=== PATIENT | male | born 1950 | race Caucasian/White ===

== ENCOUNTER 2019-04-15 16:08 | Inpatient (IN) | payer MEDICARE, OTHER ==
[~2019-04-15] VITALS: Ht 182.9 cm; Wt 82.3 kg
[~2019-04-15 16:08] MED LIST: ASPIRIN81 MG PO; BYSTOLIC10 MG PO; CALCIUM 600 +1 EAC2 PO; CLONIDINE HCL0.3 MG PO; COQ10 PO; CRESTOR10 MG PO; CYMBALTA60 MG PO; DAILY VITAMIN1 EAC3 PO; GABAPENTIN300 MG PO; GLIPIZIDE ER2.5 MG PO; HYDROCHLOROTH12.5 MG PO; HYDROCODON-ACE1 EAC9 PO; LISINOPRIL20 MG PO; METANX TABLET1 EACH PO; METFORMIN HCL500 MG PO; MORPHINE SULFAT30 M1 PO; OMEGA 3-6-9 CO400 MG PO; PANTOPRAZOLE SO40 MG PO; ZETIA10 MG PO
--- OUTSIDE RECORDS SUMMARY | 2019-04-15 16:11 | XMS REPORT ---
Author [facility] Address Unknown Phone Unavailable Care Team Providers Care Finance Vice President Name Role Phone Unavailable Unavailable Payers Payer Name Policy Type Policy Number Effective Date Expiration Date Problems This patient has no known problems. Allergies, Adverse Reactions, Alerts Allergy Name Allergy Type Status Severity Reaction(s) Onset Date Inactive Date Treating Clinician Comments No Known Allergies DA Active U 2016-04-22 00:00:00 Medications This patient has no known medications. Results Test Description Test Time Test Comments Text Results Atomic Results Result Comments - XR CHEST 2 V 2019-01-04 18:07:00 FAX: Joni Roman MD [phone] [place]: O St: REG FAX: Misbah Jackson MD [phone] Name: ARNELEBONYASHLEY XAVIER [facility] : 1950 Age/S: 68/M Ashley Brownncer herber Unit #: [id number] Loc: [place] [id number] Phys: Misbah Chambers MD Acct: [id number] Dis Date: Status: REG CLI PHONE #: [phone] Exam Date: 01/04/2019 1735 FAX #: [phone] Reason: R06.02 EXAMS: CPT CODE: [id number] XR CHEST 2 V 18329 EXAM: Chest x-ray, 2 views; INFORMATION: Shortness of breath; IMPRESSION: 1. No evidence of active cardiopulmonary disease. 2. No significant change compared with a study from April 22, 2016; the heart is borderline in size; lungs are clear. 3. Extensive orthopedic hardware along the thoracic and upper lumbar spine. at 1807 Reported and signed by: Polo Simpson M.D. CC: Joni Marie; Misbah Chambers MD Technologist: JADA Mcgarry) Trnscrd Date/Time/By: 01/04/2019 (1806) : By: Reanna Orig Print D/T: S: 01/04/2019 (1809) PAGE 1 Signed Report
[2019-04-15 17:15] LABS: BASOPHILS % 0.3 % (0.0-1.0); EOSINOPHILS % 0.4 % (0.0-6.0); HEMATOCRIT 30.8 % (38.2-49.6); HEMOGLOBIN 10.4 g/dL (14.0-18.0); LYMPHOCYTES # (AUTO) 0.7 (1.0-3.2); LYMPHOCYTES % 9.8 % (18.0-39.1); MEAN CORPUSCULAR HEMOGLOBIN 28.7 pg (28-32); MEAN CORPUSCULAR HGB CONC 33.8 g/dL (31-35); MEAN CORPUSCULAR VOLUME 84.8 fL (81-99); MONOCYTES # (AUTO) 0.8 (0.2-0.8); MONOCYTES % 11.5 % (4.4-11.3); NEUTROPHILS # (AUTO) 5.6 (2.1-6.9); NEUTROPHILS % 77.6 % (38.7-80.0); PLATELET COUNT 244 x10e3/uL (140-360); RED BLOOD COUNT 3.63 x10e6/uL (4.3-5.7); RED CELL DISTRIBUTION WIDTH 15.5 % (11.7-14.4)
[2019-04-15] MEDS: PIPER-TAZ 3.375 GM 50 ML IV SCH (17:20)
[2019-04-15 17:42] LABS: INR 1.08; PROTHROMBIN TIME 14.5 seconds (11.9-14.5)
[2019-04-15 17:43] LABS: PARTIAL THROMBOPLASTIN TIME 48.3 seconds (23.8-35.5)
--- NOTE | 2019-04-15 17:44 | Diagnostic Imaging Report ---
Exam: Right hand radiographs-3 views History: Right hand cellulitis. Comparison: None. Findings: No evidence of acute fracture or malalignment. No evidence of bony destructive changes. There is diffuse mild soft tissue edema in the hand. Impression: No acute osseous abnormality. Soft tissue edema in the hand. Signed by: Dr. Maryellen Damon MD on 04/15/2019 5:41 PM
[2019-04-15] MEDS ORDERED: ONDANSETRON HCL INJ 2MG/ML 2ML 2 MG/ML VIAL IV PRN (17:45)
[2019-04-15] MEDS ORDERED: DEXTROSE 50% SYRINGE 50 ML IV PRN (17:45)
[2019-04-15 17:46] LABS: ALBUMIN 3.9 g/dL (3.5-5.0); ALBUMIN/GLOBULIN RATIO 1.2 (0.8-2.0); ANION GAP 14.2 mmol/L (8-16); CALCIUM 10.2 mg/dL (8.4-10.2); CREATININE, SERUM 1.39 mg/dL (0.72-1.25); MAGNESIUM 1.8 MG/DL (1.3-2.1); POTASSIUM 4.2 mmol/L (3.5-5.1)
--- NOTE | 2019-04-15 17:46 | Diagnostic Imaging Report ---
EXAMINATION: CHEST SINGLE (PORTABLE) INDICATION: Right hand cellulitis. COMPARISON: Chest radiograph 06/02/2010. FINDINGS: TUBES and LINES: None. LUNGS: Lungs are well inflated. There is no evidence of pneumonia or pulmonary edema. Calcified granulomas overlying the right midlung and left lower lung. PLEURA: No pleural effusion or pneumothorax. HEART AND MEDIASTINUM: The cardiomediastinal silhouette is unremarkable. BONES AND SOFT TISSUES: No acute osseous abnormality. Partially seen thoracolumbar fixation hardware. UPPER ABDOMEN: No free air under the diaphragm. IMPRESSION: No acute radiographic abnormality. Signed by: Dr. Maryellen Damon MD on 04/15/2019 5:43 PM
[2019-04-15] MEDS: VANCOMYCIN 1GM/NS 250 ML 250 ML IV SCH (17:48)
[2019-04-15] MEDS ORDERED: MOBIC15 MG PO (18:02)
[2019-04-15] MEDS ORDERED: AMMONIUM LACTATE1 ML (18:02)
[2019-04-15] MEDS ORDERED: METOPROLOL SUC100 MG PO (18:02)
--- NOTE | 2019-04-15 18:03 | NUR ---
home meds verified with pt. and entered into the computer. dr. garenr aware
[2019-04-15] MEDS: SODIUM CHLORIDE 0.9% 1000ML 1,000 ML IV SCH (18:34)
[2019-04-15 18:36] LABS: CREATINE KINASE MB 2.9 ng/mL (0-5.0)
[2019-04-15 18:38] LABS: BILIRUBIN,URINE NEGATIVE (NEGATIVE); CLARITY,URINE SL CLOUDY (CLEAR); COLOR,URINE YELLOW (YELLOW); KETONES,URINE NEGATIVE (NEGATIVE); LEUKOCYTE ESTERASE ,URINE NEGATIVE (NEGATIVE); NITRITE,URINE NEGATIVE (NEGATIVE); PROTEIN,URINE DIPSTICK NEGATIVE (NEGATIVE); URINE UROBILINOGEN 1 mg/dL (0.2 - 1)
[2019-04-15 18:47] LABS: BACTERIA,URINE FEW /HPF; EPITHELIAL CELLS,URINE RARE /LPF; RBC,URINE 0-5 /HPF (0-5); WBC,URINE (MAN) 0-5 /HPF (0-5)
[2019-04-15 19:38] VITALS: BP 171/78
[2019-04-15] MEDS ORDERED: AMMONIUM LACTATE1 ML TOP (20:20)
[2019-04-15] MEDS ORDERED: ATORVASTATIN CA20 MG PO (20:20)
[2019-04-15] MEDS ORDERED: eliquis PO (20:20)
[2019-04-15] MEDS ORDERED: MULTI-VITAMIN1 EACH PO (20:20)
[2019-04-15] MEDS ORDERED: FENOFIBRIC ACI105 MG PO (20:20)
[2019-04-15] MEDS ORDERED: AMLODIPINE BESY10 MG PO (20:20)
[2019-04-15] MEDS ORDERED: FERROUS SULFAT325 MG PO (20:20)
[2019-04-15 20:23] VITALS: BP 171/78
[2019-04-15] MEDS ORDERED: NON-FORMULARY MEDICATION (Morphine Sulfate 30 MG) PO PRN (20:30)
[2019-04-15] MEDS: INSULIN LISPRO 100 UNIT/1 ML 3ML VIAL SQ SCH (21:00)
[2019-04-15] MEDS: MORPHINE SULFATE 30 MG TAB ER PO PRN (22:03)
[2019-04-15 22:56] VITALS: BP 171/78
[2019-04-16] VITALS (9 sets, daily range): BP systolic 130–188; BP diastolic 62–91
[2019-04-16] MEDS: PIPER-TAZ 3.375 GM 50 ML IV SCH ×5 (00:09→23:26)
[2019-04-16 04:43] LABS: EOSINOPHILS % 0.5 % (0.0-6.0); HEMATOCRIT 32.1 % (38.2-49.6); HEMOGLOBIN 10.5 g/dL (14.0-18.0); LYMPHOCYTES # (AUTO) 0.6 (1.0-3.2); LYMPHOCYTES % 10.8 % (18.0-39.1); MEAN CORPUSCULAR HEMOGLOBIN 28.5 pg (28-32); MEAN CORPUSCULAR HGB CONC 32.7 g/dL (31-35); MEAN CORPUSCULAR VOLUME 87.2 fL (81-99); MONOCYTES # (AUTO) 0.5 (0.2-0.8); MONOCYTES % 9.3 % (4.4-11.3); NEUTROPHILS # (AUTO) 4.4 (2.1-6.9); PLATELET COUNT 213 x10e3/uL (140-360); RED BLOOD COUNT 3.68 x10e6/uL (4.3-5.7); RED CELL DISTRIBUTION WIDTH 15.8 % (11.7-14.4)
[2019-04-16 04:59] LABS: ALBUMIN 3.6 g/dL (3.5-5.0); ALBUMIN/GLOBULIN RATIO 1.1 (0.8-2.0); ANION GAP 13.9 mmol/L (8-16); CALCIUM 9.7 mg/dL (8.4-10.2); CREATININE, SERUM 1.28 mg/dL (0.72-1.25); POTASSIUM 3.9 mmol/L (3.5-5.1)
[2019-04-16] MEDS ORDERED: ACETAMINOPHEN 325 MG TAB PO PRN (06:00)
[2019-04-16] MEDS ORDERED: CLONIDINE HCL 0.3 MG TAB PO SCH (06:00)
[2019-04-16] MEDS ORDERED: DEXTROSE 50% SYRINGE 50 ML IV PRN (06:00)
[2019-04-16] MEDS ORDERED: HYDROCODONE/APAP 10MG-325MG TAB PO PRN (06:00)
[2019-04-16] MEDS: VANCOMYCIN 1GM/NS 250 ML 250 ML IV SCH ×2 (06:01→18:07)
[2019-04-16] MEDS: SODIUM CHLORIDE 0.9% 1000ML 1,000 ML IV SCH ×3 (06:01→21:00)
[2019-04-16] MEDS: PANTOPRAZOLE SOD 40 MG TABEC PO SCH ×2 (06:53→08:29)
[2019-04-16] MEDS: MORPHINE SULFATE 30 MG TAB ER PO PRN ×3 (06:53→23:26)
[2019-04-16] MEDS: CLONIDINE HCL 0.2 MG TAB PO SCH ×3 (06:53→21:01)
[2019-04-16] MEDS ORDERED: INSULIN LISPRO 100 UNIT/1 ML 3ML VIAL SQ SCH (07:30)
[2019-04-16] MEDS: INSULIN LISPRO 100 UNIT/1 ML 3ML VIAL SQ SCH ×4 (07:30→21:00)
--- NOTE | 2019-04-16 07:30 | NUR ---
Received patient this morning and alert and responsive, call light within reach, bed in low locked position, will monitor.
[2019-04-16] MEDS: MELOXICAM 7.5 MG TAB PO SCH (08:28)
[2019-04-16] MEDS: GABAPENTIN 400 MG CAP PO SCH ×3 (08:28→21:00)
[2019-04-16] MEDS: APIXABAN 5 MG TABLET PO SCH ×2 (08:28→16:47)
[2019-04-16] MEDS: GLIPIZIDE 2.5 MG TABCR PO SCH (08:28)
[2019-04-16] MEDS: DULOXETINE HCL 30 MG DELAYED RELEASE PO SCH (08:28)
[2019-04-16] MEDS: AMLODIPINE BESYLATE 10 MG TAB PO SCH (08:28)
[2019-04-16] MEDS: FENOFIBRATE 145 MG TAB PO SCH (08:29)
[2019-04-16] MEDS: LISINOPRIL 10 MG TAB PO SCH ×2 (08:29→16:47)
[2019-04-16] MEDS: METOPROLOL SUCCINATE 50 MG TAB XL PO SCH (08:29)
[2019-04-16] MEDS: HYDROCODONE/APAP 10MG-325MG TAB PO PRN ×2 (08:34→18:08)
[2019-04-16] MEDS ORDERED: NON-FORMULARY MEDICATION (Duloxetine Hcl (Cymbalta) 60 MG) PO SCH (09:00)
[2019-04-16] MEDS ORDERED: GABAPENTIN 300 MG CAP PO SCH (09:00)
[2019-04-16] MEDS ORDERED: NON-FORMULARY MEDICATION (Metoprolol Succinate 100 MG) PO SCH (09:00)
[2019-04-16] MEDS ORDERED: LISINOPRIL 20 MG TAB PO SCH (09:00)
[2019-04-16] MEDS ORDERED: MELOXICAM 15 MG PO SCH (09:00)
[2019-04-16] MEDS ORDERED: FENOFIBRIC ACID 135 MG PO SCH (09:00)
--- NOTE | 2019-04-16 17:59 | NUR ---
Patient stable, OOB and ambulated, tolerating IV abx well, no adverse reaction, pains well managed. Vanco trough level at 11.1 and notified ENERGY ANALYST and to continue with dose. Will monitor.
[2019-04-16] MEDS: ATORVASTATIN 20 MG TAB PO SCH (21:00)
[2019-04-17] VITALS (7 sets, daily range): BP systolic 128–187; BP diastolic 66–87
[2019-04-17] MEDS: PIPER-TAZ 3.375 GM 50 ML IV SCH ×4 (05:16→23:57)
[2019-04-17] MEDS: CLONIDINE HCL 0.2 MG TAB PO SCH ×3 (05:24→21:44)
[2019-04-17] MEDS: HYDROCODONE/APAP 10MG-325MG TAB PO PRN ×3 (05:25→20:10)
[2019-04-17] MEDS: VANCOMYCIN 1GM/NS 250 ML 250 ML IV SCH ×2 (06:00→16:40)
[2019-04-17] MEDS: INSULIN LISPRO 100 UNIT/1 ML 3ML VIAL SQ SCH ×4 (07:30→21:43)
[2019-04-17] MEDS: APIXABAN 5 MG TABLET PO SCH ×2 (08:12→15:58)
[2019-04-17] MEDS: MELOXICAM 7.5 MG TAB PO SCH (08:12)
[2019-04-17] MEDS: AMLODIPINE BESYLATE 10 MG TAB PO SCH (08:12)
[2019-04-17] MEDS: GLIPIZIDE 2.5 MG TABCR PO SCH (08:12)
[2019-04-17] MEDS: DULOXETINE HCL 30 MG DELAYED RELEASE PO SCH (08:12)
[2019-04-17] MEDS: MORPHINE SULFATE 30 MG TAB ER PO PRN ×2 (08:12→17:50)
[2019-04-17] MEDS: GABAPENTIN 400 MG CAP PO SCH ×3 (08:12→21:39)
[2019-04-17] MEDS: PANTOPRAZOLE SOD 40 MG TABEC PO SCH (08:13)
[2019-04-17] MEDS: LISINOPRIL 10 MG TAB PO SCH ×2 (08:13→15:58)
[2019-04-17] MEDS: METOPROLOL SUCCINATE 50 MG TAB XL PO SCH (08:13)
[2019-04-17] MEDS: FENOFIBRATE 145 MG TAB PO SCH (08:13)
--- NOTE | 2019-04-17 15:17 | NUR ---
CM SPOKE TO DAVID GUERRERO WITH DR. CLIFFORD GROUP REGARDING DISCHARGE PLAN. PATIENT TO RECEIVE ONE MORE DAY IV ABX. PATIENT ANTICIPATED DISCHARGE TOMORROW 04/17.
[2019-04-17] MEDS ORDERED: ONDANSETRON HCL 4 MG ORAL DISINTEGRATING TAB PO PRN (15:30)
--- NOTE | 2019-04-17 18:36 | NUR ---
Resting in bed, side rails upx2, call light within reach. AAOX3 to time, person, place. Respirations even and unlabored. Report to be given to oncoming nurse of patients status.
--- NOTE | 2019-04-17 19:55 | NUR ---
Patient finished dialysis and his weight is 143.5 lb. Addendum: 04/18/19 at 0048 by Yaquelin Nur RN This was written on the wrong patient. PLEASE IGNORE ABOVE NOTE!
[2019-04-17] MEDS: ATORVASTATIN 20 MG TAB PO SCH (21:39)
[2019-04-18] VITALS (8 sets, daily range): BP systolic 136–194; BP diastolic 69–88
[2019-04-18] MEDS: HYDRALAZINE HCL 20 MG/ML VIAL IV PRN (00:32)
[2019-04-18 02:34] LABS: BASOPHILS % 0.2 % (0.0-1.0); EOSINOPHILS # (AUTO) 0.1 (0.0-0.4); HEMOGLOBIN 10.3 g/dL (14.0-18.0); LYMPHOCYTES # (AUTO) 0.7 (1.0-3.2); MEAN CORPUSCULAR HEMOGLOBIN 28.5 pg (28-32); MEAN CORPUSCULAR HGB CONC 33.2 g/dL (31-35); MEAN CORPUSCULAR VOLUME 85.6 fL (81-99); MONOCYTES # (AUTO) 0.4 (0.2-0.8); MONOCYTES % 7.8 % (4.4-11.3); NEUTROPHILS # (AUTO) 3.8 (2.1-6.9); NEUTROPHILS % 76.8 % (38.7-80.0); PLATELET COUNT 266 x10e3/uL (140-360); RED BLOOD COUNT 3.62 x10e6/uL (4.3-5.7); RED CELL DISTRIBUTION WIDTH 15.6 % (11.7-14.4)
[2019-04-18 02:51] LABS: ANION GAP 15.2 mmol/L (8-16); CREATININE, SERUM 1.29 mg/dL (0.72-1.25); POTASSIUM 4.2 mmol/L (3.5-5.1)
[2019-04-18] MEDS: HYDROCODONE/APAP 10MG-325MG TAB PO PRN ×2 (05:09→17:14)
[2019-04-18] MEDS: VANCOMYCIN 1GM/NS 250 ML 250 ML IV SCH ×2 (05:11→18:20)
[2019-04-18] MEDS: MORPHINE SULFATE 30 MG TAB ER PO PRN ×4 (05:55→23:14)
[2019-04-18] MEDS: PIPER-TAZ 3.375 GM 50 ML IV SCH ×2 (06:43→12:01)
[2019-04-18] MEDS: CLONIDINE HCL 0.2 MG TAB PO SCH ×3 (06:44→22:01)
--- NOTE | 2019-04-18 07:15 | NUR ---
Gave report to oncoming nurse. Call light within reach. Patient in bed.
[2019-04-18] MEDS: INSULIN LISPRO 100 UNIT/1 ML 3ML VIAL SQ SCH ×4 (07:30→21:58)
[2019-04-18] MEDS: GLIPIZIDE 2.5 MG TABCR PO SCH (09:06)
[2019-04-18] MEDS: DULOXETINE HCL 30 MG DELAYED RELEASE PO SCH (09:06)
[2019-04-18] MEDS: MELOXICAM 7.5 MG TAB PO SCH (09:06)
[2019-04-18] MEDS: GABAPENTIN 400 MG CAP PO SCH ×3 (09:06→21:56)
[2019-04-18] MEDS: APIXABAN 5 MG TABLET PO SCH ×2 (09:06→16:43)
[2019-04-18] MEDS: METOPROLOL SUCCINATE 50 MG TAB XL PO SCH (09:07)
[2019-04-18] MEDS: FENOFIBRATE 145 MG TAB PO SCH (09:07)
[2019-04-18] MEDS: LISINOPRIL 10 MG TAB PO SCH ×2 (09:07→16:43)
[2019-04-18] MEDS: NIFEDIPINE CR 30 MG TAB PO SCH (09:07)
[2019-04-18] MEDS: PANTOPRAZOLE SOD 40 MG TABEC PO SCH (09:07)
--- NOTE | 2019-04-18 13:51 | NUR ---
ASSESSMENT: Spiritual concern Pt worried about source of illness. Pt states "I just scraped my hand." Pt identifies as [employer]. Pt states he previously had extensive back surgery. Intervention: Provided hospitality and directions to chapel. Provided information about availability of Soil Surveyor services. Outcome: Pt expressed appreciation for visit. No need to follow at this time. ATIF NGUYEN Soil Surveyor Spiritual Care Department O: [phone] Pager: [phone] ([phone] number calling from)
--- NOTE | 2019-04-18 16:44 | Consultation ---
DATE OF CONSULTATION: 04/18/2019 REASON FOR CONSULTATION: Cellulitis of the hand, not getting any better. HISTORY OF PRESENT ILLNESS: This is a very pleasant 68-year-old white male, history of diabetes mellitus, history of hypertension, hyperlipidemia. The patient a few days ago working in his kitchen, apparently he scratched his hand on the cabinet. There was no problem at that time, but few days later started to have some pain, redness, and swelling. The patient came to emergency room. He was admitted here to [facility] on 04/17/2019. He was started on IV vancomycin and Zosyn, appropriate doses, but the hand initially started to get better, but then started to get worse again with redness starting to go up his arm, so Infectious Disease was consulted. Ultrasound apparently was done and was negative. The patient is currently lying in bed comfortably. Denies any water exposure. Denies any pet. Since admission, his white count has been within normal limits. His blood cultures have been negative for 48 hours. PAST MEDICAL HISTORY: Hypertension, hyperlipidemia, and diabetes. PAST SURGICAL HISTORY: Denies. ALLERGIES: NKA. SOCIAL HISTORY: There is no smoking, drug abuse, or alcohol abuse. FAMILY HISTORY: Diabetes mellitus. REVIEW OF SYSTEMS: HEENT: There is no headache, visual changes, hearing changes. GI: There is no nausea, no vomiting, no diarrhea. CARDIAC: There is no arrhythmia. NEURO: No seizure activity. SKIN: There are no other rashes. All other systems within normal limits. LABORATORY DATA: Reviewed. His creatinine 1.28, BUN 20, and chloride 104. White count 5.58, hemoglobin 10.5, platelets 213. PHYSICAL EXAMINATION: GENERAL: He is currently alert, oriented, does not seem to be in acute distress. VITAL SIGNS: Stable, currently afebrile. HEENT: He does not appear icteric. Normocephalic. NECK: Supple. No JVD. No lymphadenopathy. No thyromegaly. CHEST: Clear bilateral. HEART: S1, S2. No S3, S4, or murmur. ABDOMEN: Soft. Bowel sounds present. No tenderness. No hepatosplenomegaly. EXTREMITIES: There is no edema. The right hand, there is erythema, there is edema, there is induration. I am concerned about the base of the 3rd finger. There is swelling in the joint. The x-ray of the hand was negative. There was a Doppler ordered. IMPRESSION: Cellulitis of the hand. I am concerned about infected joint, I am concerned about abscess. I would recommend to obtain MRI with and without contrast. Continue vancomycin. We will discontinue Zosyn. We will put him on clindamycin and cefepime to cover strep in the meantime. We will also consult Hand Surgery, Dr. Euceda. Discussed with the patient, discussed with nursing team, discussed with the attending and discussed with Dr. Euceda. Thank you so much for asking me to see this patient. MD GERTRUDE Reese/MODAra /[id number]
[2019-04-18] MEDS: CLINDAMYCIN PHOS 900MG/ 50ML 50 ML IV SCH (17:13)
[2019-04-18] MEDS ORDERED: SODIUM CHLORIDE 0.9% 250ML 250 ML ONE (18:03)
--- NOTE | 2019-04-18 18:20 | NUR ---
vanc trough 14.4. Vancomycin to be held only if greater than 20. Vancomycin given as ordered
--- NOTE | 2019-04-18 18:48 | NUR ---
Received report from previous nurse. call light within reach. patient in bed.
--- NOTE | 2019-04-18 19:20 | NUR ---
Report given to oncoming nurse of patient's status. Resting in bed. No s/s of acute distress noted.
[2019-04-18] MEDS: ATORVASTATIN 20 MG TAB PO SCH (21:56)
[2019-04-18] MEDS: CEFEPIME 1GM/NS 0.9% 50 ML 50 ML IV SCH (22:01)
--- NOTE | 2019-04-18 22:23 | Diagnostic Imaging Report ---
EXAMINATION: CHEST XRAY LINE PLACEMENT COMPARISON: Chest x-ray 04/15/2019 INDICATION: PICC line placement ^PICC line placement ^[id number] ^2117 DISCUSSION: Frontal view of the chest obtained at 2117 hours. HEART AND MEDIASTINUM: The cardiomediastinal silhouette is unremarkable. LINES: Left PICC line terminates in the distal brachiocephalic vein. No pneumothorax LUNGS: The lungs are well inflated and clear. Calcified brownlee limits in the right midlung field and left lung base. PLEURA: No pleural effusion or pneumothorax. BONES AND SOFT TISSUES: Stable fusion hardware of the thoracic spine. The soft tissues are normal. IMPRESSION: Left PICC line terminates in the brachiocephalic vein without pneumothorax. No new cardiopulmonary process. Signed by: Dr. Shiraz Faustin MD on 04/18/2019 10:20 PM
[2019-04-19] VITALS (9 sets, daily range): BP systolic 152–181; BP diastolic 71–88
--- NOTE | 2019-04-19 00:33 | Diagnostic Imaging Report ---
EXAMINATION: CHEST XRAY LINE PLACEMENT COMPARISON: Chest x-ray 04/18/2019 INDICATION: ^PICC line placement DISCUSSION: Frontal view of the chest obtained at 0009 hours. HEART AND MEDIASTINUM: The cardiomediastinal silhouette is stable. LINES: Left PICC line has been advanced into the SVC. No pneumothorax. LUNGS: Stable calcified granulomata. No new findings. PLEURA: No pleural effusion or pneumothorax. BONES AND SOFT TISSUES: Stable fusion hardware in the thoracic spine. The soft tissues are normal. IMPRESSION: Left PICC line terminates in the SVC without pneumothorax. No acute cardiopulmonary process. Signed by: Dr. Shiraz Faustin MD on 04/19/2019 12:29 AM
[2019-04-19] MEDS: CLINDAMYCIN PHOS 900MG/ 50ML 50 ML IV SCH ×3 (00:59→18:17)
[2019-04-19 03:37] LABS: BASOPHILS % 0.6 % (0.0-1.0); EOSINOPHILS # (AUTO) 0.1 (0.0-0.4); EOSINOPHILS % 1.4 % (0.0-6.0); HEMATOCRIT 28.1 % (38.2-49.6); HEMOGLOBIN 9.3 g/dL (14.0-18.0); LYMPHOCYTES # (AUTO) 0.7 (1.0-3.2); LYMPHOCYTES % 21.1 % (18.0-39.1); MEAN CORPUSCULAR HEMOGLOBIN 28.6 pg (28-32); MEAN CORPUSCULAR HGB CONC 33.1 g/dL (31-35); MEAN CORPUSCULAR VOLUME 86.5 fL (81-99); MONOCYTES # (AUTO) 0.3 (0.2-0.8); MONOCYTES % 9.4 % (4.4-11.3); NEUTROPHILS # (AUTO) 2.3 (2.1-6.9); NEUTROPHILS % 65.8 % (38.7-80.0); PLATELET COUNT 271 x10e3/uL (140-360); RED BLOOD COUNT 3.25 x10e6/uL (4.3-5.7); RED CELL DISTRIBUTION WIDTH 15.2 % (11.7-14.4)
[2019-04-19 03:56] LABS: ANION GAP 13.2 mmol/L (8-16); BLOOD UREA NITROGEN 19 mg/dL (7-26); BUN/CREATININE RATIO 17 (6-25); CALCIUM 9.1 mg/dL (8.4-10.2); CARBON DIOXIDE 22 mmol/L (22-29); CHLORIDE 106 mmol/L (98-107); CREATININE, SERUM 1.13 mg/dL (0.72-1.25); EST GLOMERULAR FILTRATION RATE > 60 ML/MIN (60-); GLUCOSE 103 mg/dL (74-118); POTASSIUM 4.2 mmol/L (3.5-5.1); SODIUM 137 mmol/L (136-145)
[2019-04-19] MEDS: CLONIDINE HCL 0.2 MG TAB PO SCH ×3 (05:58→20:53)
[2019-04-19] MEDS: CEFEPIME 1GM/NS 0.9% 50 ML 50 ML IV SCH ×3 (05:58→20:52)
--- NOTE | 2019-04-19 06:29 | NUR ---
At 5 am patient decided he wanted to have a shower, so at 0530 he went into the shower. Waiting for the patient to finish his shower to start his IV antibiotics and give his 0600 medication.
[2019-04-19] MEDS: HYDROCODONE/APAP 10MG-325MG TAB PO PRN ×2 (06:45→14:47)
--- NOTE | 2019-04-19 07:00 | NUR ---
BEDSIDE SHIFT REPORT RECEIVED FROM THE MACHINE PRECISION ENGRAVER RN. PT DENIES NEEDS AT THIS TIME.
[2019-04-19] MEDS: VANCOMYCIN 1GM/NS 250 ML 250 ML IV SCH ×2 (07:12→19:04)
--- NOTE | 2019-04-19 07:20 | NUR ---
Gave report to oncoming nurse. Patient in bed. Call light within reach.
[2019-04-19] MEDS: INSULIN LISPRO 100 UNIT/1 ML 3ML VIAL SQ SCH ×4 (07:30→20:54)
[2019-04-19] MEDS: LISINOPRIL 10 MG TAB PO SCH ×2 (07:54→18:17)
[2019-04-19] MEDS: GABAPENTIN 400 MG CAP PO SCH ×3 (07:55→20:52)
[2019-04-19] MEDS: NIFEDIPINE CR 30 MG TAB PO SCH (07:56)
[2019-04-19] MEDS: METOPROLOL SUCCINATE 50 MG TAB XL PO SCH (07:56)
[2019-04-19] MEDS: PANTOPRAZOLE SOD 40 MG TABEC PO SCH (07:56)
[2019-04-19] MEDS: FENOFIBRATE 145 MG TAB PO SCH (07:57)
[2019-04-19] MEDS: GLIPIZIDE 2.5 MG TABCR PO SCH (07:58)
[2019-04-19] MEDS: APIXABAN 5 MG TABLET PO SCH ×2 (07:58→18:17)
[2019-04-19] MEDS: MELOXICAM 7.5 MG TAB PO SCH (07:59)
[2019-04-19] MEDS: DULOXETINE HCL 30 MG DELAYED RELEASE PO SCH (07:59)
[2019-04-19] MEDS: MORPHINE SULFATE 30 MG TAB ER PO PRN ×2 (10:46→20:56)
--- NOTE | 2019-04-19 12:00 | NUR ---
PAGED DR. NEELY OFFICE REGARDING PT DISCHARGE PROCESS.
--- NOTE | 2019-04-19 14:09 | Consultation ---
DATE OF CONSULTATION: 04/19/2019 REASON FOR CONSULT: Cellulitis, right hand. HISTORY OF PRESENT ILLNESS: The patient is a 68-year-old [id number] male, who states that approximately nine days ago while reaching for paper towel on the undersurface of his kitchen cabinet, he struck the dorsum of his right hand. The patient states that approximately several days ago, the hand began to swell and became painful. He was then seen in the emergency room on 04/15/2019 and admitted for intravenous antibiotics. The consultation is now requested of Hand Surgery for evaluation and optimal treatment. PAST MEDICAL HISTORY: Significant for hypertension, coronary artery disease, chronic back pain and peripheral neuropathy, and a history of AR. PAST SURGICAL HISTORY: Includes a thoracic back surgery and a cholecystectomy. PHYSICAL EXAMINATION: His vital signs show blood pressure of 166/71. The patient is afebrile. Pertinent physical exam shows the right hand has centralized aspect of swelling directly over the right long finger MP joint. The swelling and the erythema are diffuse and extend out to the remainder of the MPJs and the dorsum of the hand. There are no open wounds. There does not appear to be any drainage of purulent exudate. The range of motion of the hand is somewhat decreased secondary to the swelling and the pain. The neurovascular exam is grossly normal. There is no lymphangitic streaking of the arm. IMAGING DATA: Radiographs obtained in the emergency room show no acute bony abnormality and no foreign body, which is radiopaque. IMPRESSION: Cellulitis, right hand. PLAN: The patient is getting an MRI today. Of note is that the patient is normally maintained on anticoagulation, which was recently stopped in order to undergo injections of his bilateral hips for chronic pain. After the injections, the patient was restarted on the anticoagulation and he is noted to have swelling of the hand coincident with it. I am concerned that this could either be a hematoma or purulent extensor tenosynovitis. I will wait for the MRI result and then perform an aspiration of the right long finger MPJ at the bedside. Thank you for allowing me to participate in the care of your patient. MD MOISÉS Valenzuela/MODL /[id number]
[2019-04-19] MEDS ORDERED: GADOBENATE DIMEGLUMINE 1 ML IV ONE (15:54)
--- NOTE | 2019-04-19 16:15 | NUR ---
PT OFF UNIT FOR PROCEDURE IN SAFE CONDITION.
--- NOTE | 2019-04-19 17:32 | NUR ---
PT IS BACK TO UNIT AFTER PROCEDURE. PT FAMILY AT BEDSIDE. PT DENIES NEEDS AT THIS TIME.
--- NOTE | 2019-04-19 17:48 | NUR ---
Spoke with Dr. Diaz who states he has approval for IV abx thru his office when pt discharges.
--- NOTE | 2019-04-19 18:37 | NUR ---
PAGED DR. NEELY OFFICE TO REPORT THE CRITICAL VANC TROUGH LEVEL.
--- NOTE | 2019-04-19 19:00 | NUR ---
BEDSIDE SHIFT REPORT GIVEN TO THE HEARING AID ASSISTANT RN. PT DENIED FURTHER NEEDS.
--- NOTE | 2019-04-19 19:01 | NUR ---
OKAY TO ADMINISTER VANCOMYCIN PER DR. NEELY
[2019-04-19] MEDS: ATORVASTATIN 20 MG TAB PO SCH (20:52)
[2019-04-20] VITALS (8 sets, daily range): BP systolic 132–196; BP diastolic 74–91
[2019-04-20] MEDS: CLINDAMYCIN PHOS 900MG/ 50ML 50 ML IV SCH ×3 (00:58→17:43)
[2019-04-20 03:45] LABS: BASOPHILS % 0.6 % (0.0-1.0); EOSINOPHILS # (AUTO) 0.1 (0.0-0.4); EOSINOPHILS % 2.8 % (0.0-6.0); HEMATOCRIT 29.4 % (38.2-49.6); HEMOGLOBIN 9.5 g/dL (14.0-18.0); LYMPHOCYTES # (AUTO) 0.7 (1.0-3.2); LYMPHOCYTES % 22.3 % (18.0-39.1); MEAN CORPUSCULAR HEMOGLOBIN 28.4 pg (28-32); MEAN CORPUSCULAR HGB CONC 32.3 g/dL (31-35); MEAN CORPUSCULAR VOLUME 87.8 fL (81-99); MONOCYTES # (AUTO) 0.3 (0.2-0.8); MONOCYTES % 9.1 % (4.4-11.3); NEUTROPHILS % 63.9 % (38.7-80.0); PLATELET COUNT 263 x10e3/uL (140-360); RED BLOOD COUNT 3.35 x10e6/uL (4.3-5.7); RED CELL DISTRIBUTION WIDTH 15.3 % (11.7-14.4)
[2019-04-20] MEDS: HYDROCODONE/APAP 10MG-325MG TAB PO PRN ×2 (04:00→12:53)
--- NOTE | 2019-04-20 04:04 | NUR ---
PICC Line dressing changed. Patient tolerated well.
[2019-04-20 04:08] LABS: ANION GAP 13.3 mmol/L (8-16); BLOOD UREA NITROGEN 23 mg/dL (7-26); BUN/CREATININE RATIO 21 (6-25); CALCIUM 9.4 mg/dL (8.4-10.2); CARBON DIOXIDE 26 mmol/L (22-29); CHLORIDE 104 mmol/L (98-107); CREATININE, SERUM 1.11 mg/dL (0.72-1.25); EST GLOMERULAR FILTRATION RATE > 60 ML/MIN (60-); GLUCOSE 122 mg/dL (74-118); POTASSIUM 4.3 mmol/L (3.5-5.1); SODIUM 139 mmol/L (136-145)
[2019-04-20] MEDS: CEFEPIME 1GM/NS 0.9% 50 ML 50 ML IV SCH ×3 (05:39→22:07)
[2019-04-20] MEDS: CLONIDINE HCL 0.2 MG TAB PO SCH ×3 (05:40→22:07)
[2019-04-20] MEDS: MORPHINE SULFATE 30 MG TAB ER PO PRN ×2 (06:26→14:58)
[2019-04-20] MEDS: VANCOMYCIN 1GM/NS 250 ML 250 ML IV SCH ×2 (06:26→18:03)
--- NOTE | 2019-04-20 07:00 | NUR ---
BEDSIDE REPORT FROM NIGHT RN. PT DENIES NEEDS AT THIS TIME.
[2019-04-20] MEDS: INSULIN LISPRO 100 UNIT/1 ML 3ML VIAL SQ SCH ×4 (07:30→20:58)
[2019-04-20] MEDS: APIXABAN 5 MG TABLET PO SCH ×2 (08:35→17:43)
[2019-04-20] MEDS: DULOXETINE HCL 30 MG DELAYED RELEASE PO SCH (08:35)
[2019-04-20] MEDS: MELOXICAM 7.5 MG TAB PO SCH (08:35)
[2019-04-20] MEDS: GLIPIZIDE 2.5 MG TABCR PO SCH (08:35)
[2019-04-20] MEDS: PANTOPRAZOLE SOD 40 MG TABEC PO SCH (08:36)
[2019-04-20] MEDS: GABAPENTIN 400 MG CAP PO SCH ×3 (08:36→20:56)
[2019-04-20] MEDS: LISINOPRIL 10 MG TAB PO SCH ×2 (08:36→17:43)
[2019-04-20] MEDS: FENOFIBRATE 145 MG TAB PO SCH (08:37)
[2019-04-20] MEDS: METOPROLOL SUCCINATE 50 MG TAB XL PO SCH (08:37)
[2019-04-20] MEDS: NIFEDIPINE CR 30 MG TAB PO SCH ×2 (08:47→17:45)
[2019-04-20] MEDS ORDERED: LIDOCAINE 1% 5ML-MPF INJ ONE (11:00)
--- NOTE | 2019-04-20 19:00 | NUR ---
Received patient from day nurse, patient is alert and oriented, patient denies any pain at this time, patient is not in any form of distress, introduced self to patient, safety and fall precautions maintained as per hospital protocol: bed in lowest position and locked, needed items beside bed and call field placed close to patient, patient instructed to use it to call nurses for help, patient verbalized understanding. patient is currently stable will continue to monitor.
[2019-04-20] MEDS: ATORVASTATIN 20 MG TAB PO SCH (20:56)
[2019-04-20] MEDS: HYDRALAZINE HCL 20 MG/ML VIAL IV PRN (22:09)
[2019-04-21] MEDS: CLINDAMYCIN PHOS 900MG/ 50ML 50 ML IV SCH ×2 (01:15→09:37)
[2019-04-21 02:07] VITALS: BP 146/66
[2019-04-21] MEDS ORDERED: NIFEDIPINE ER30 M1 PO (04:38)
[2019-04-21 05:29] VITALS: BP 157/78
[2019-04-21] MEDS: CEFEPIME 1GM/NS 0.9% 50 ML 50 ML IV SCH (05:55)
[2019-04-21] MEDS: CLONIDINE HCL 0.2 MG TAB PO SCH (05:55)
[2019-04-21] MEDS: VANCOMYCIN 1GM/NS 250 ML 250 ML IV SCH (05:55)
[2019-04-21 06:47] LABS: BASOPHILS % 0.6 % (0.0-1.0); EOSINOPHILS # (AUTO) 0.1 (0.0-0.4); EOSINOPHILS % 2.3 % (0.0-6.0); HEMATOCRIT 28.9 % (38.2-49.6); HEMOGLOBIN 9.3 g/dL (14.0-18.0); LYMPHOCYTES # (AUTO) 0.8 (1.0-3.2); LYMPHOCYTES % 16.1 % (18.0-39.1); MEAN CORPUSCULAR HEMOGLOBIN 28.1 pg (28-32); MEAN CORPUSCULAR HGB CONC 32.2 g/dL (31-35); MEAN CORPUSCULAR VOLUME 87.3 fL (81-99); MONOCYTES # (AUTO) 0.4 (0.2-0.8); MONOCYTES % 7.8 % (4.4-11.3); NEUTROPHILS # (AUTO) 3.4 (2.1-6.9); NEUTROPHILS % 71.7 % (38.7-80.0); PLATELET COUNT 274 x10e3/uL (140-360); RED BLOOD COUNT 3.31 x10e6/uL (4.3-5.7); RED CELL DISTRIBUTION WIDTH 15.3 % (11.7-14.4)
[2019-04-21 06:53] LABS: ANION GAP 11.4 mmol/L (8-16); BLOOD UREA NITROGEN 26 mg/dL (7-26); BUN/CREATININE RATIO 23 (6-25); CALCIUM 9.3 mg/dL (8.4-10.2); CARBON DIOXIDE 29 mmol/L (22-29); CHLORIDE 103 mmol/L (98-107); CREATININE, SERUM 1.13 mg/dL (0.72-1.25); EST GLOMERULAR FILTRATION RATE > 60 ML/MIN (60-); GLUCOSE 98 mg/dL (74-118); POTASSIUM 4.4 mmol/L (3.5-5.1); SODIUM 139 mmol/L (136-145)
--- NOTE | 2019-04-21 07:25 | NUR ---
Patient endorsed to next shift for continuity of care.
[2019-04-21] MEDS: INSULIN LISPRO 100 UNIT/1 ML 3ML VIAL SQ SCH (07:30)
--- NOTE | 2019-04-21 07:41 | NUR ---
IMM letter delivered and explained to pt. He verbalized understanding, states he is ready to go home. Signed copy placed in chart. Copy to pt.
[2019-04-21 08:00] VITALS: BP 173/81
--- NOTE | 2019-04-21 08:00 | NUR ---
Pt received in bed with eyes open aox4 and able to verbalize needs. Pt denies any pain at this time. Breaths are even and unlabored. PICC line in place to left upper ext in place and patent.
[2019-04-21 08:01] VITALS: BP 173/81
--- NOTE | 2019-04-21 08:59 | Diagnostic Imaging Report ---
Right hand MRI with and without contrast. History: Cellulitis. Redness. Pain at the third joint. Infection. Comparison: None Technique: Multiplanar multisequence MRI of the hand with and without contrast. 17 cc IV gadolinium contrast material was administered Findings: No acute fracture, subluxation or avascular necrosis. Scattered degenerative change. 1.4 x 1.3 x 1.0 cm peripherally enhancing fluid collection/abscess in the superficial dorsal soft tissues at the level of the third metacarpophalangeal joint best seen on series 14 image 13. Similar appearing but larger peripherally enhancing fluid collection/abscess in the more deep dorsal soft tissues at the level of the mid third and fourth metacarpals best seen on series 14 image 5 and 6. Third metacarpophalangeal joint effusion and synovitis could be reactive or possibly early septic arthritis in the appropriate clinical context. No osseous erosion or focal bone marrow edema is seen to suggest osteomyelitis. This is best seen on series 3 image 14. There is fluid signal intensity surrounding the extensor tendon to the third digit at the level of the metacarpophalangeal joint consistent with tenosynovitis. The visualized muscles are normal in size, signal intensity and morphology. No ligamentous or tendon tear is seen. The visualized neurovascular bundles are intact. Impression: 1.4 x 1.3 x 1.0 cm peripherally enhancing fluid collection/abscess in the superficial dorsal soft tissues at the level of the third metacarpophalangeal joint. Similar appearing but larger peripherally enhancing fluid collection/abscess in the more deep dorsal soft tissues at the level of the mid third and fourth metacarpals. Third metacarpophalangeal joint effusion and synovitis could be reactive or possibly early septic arthritis in the appropriate clinical context. No osseous erosion or focal bone marrow edema is seen to suggest osteomyelitis. Fluid signal intensity surrounding the extensor tendon to the third digit at the level of the metacarpophalangeal joint consistent with tenosynovitis. Signed by: Dr. Sandip Weston M.D. on 04/21/2019 8:56 AM
[2019-04-21] MEDS: DULOXETINE HCL 30 MG DELAYED RELEASE PO SCH (09:38)
[2019-04-21] MEDS: APIXABAN 5 MG TABLET PO SCH (09:38)
[2019-04-21] MEDS: GLIPIZIDE 2.5 MG TABCR PO SCH (09:39)
[2019-04-21] MEDS: MELOXICAM 7.5 MG TAB PO SCH (09:39)
[2019-04-21] MEDS: LISINOPRIL 10 MG TAB PO SCH (09:39)
[2019-04-21] MEDS: GABAPENTIN 400 MG CAP PO SCH (09:39)
[2019-04-21] MEDS: HYDROCODONE/APAP 10MG-325MG TAB PO PRN (09:40)
[2019-04-21] MEDS: NIFEDIPINE CR 30 MG TAB PO SCH (09:40)
[2019-04-21] MEDS: PANTOPRAZOLE SOD 40 MG TABEC PO SCH (09:40)
[2019-04-21] MEDS: FENOFIBRATE 145 MG TAB PO SCH (09:40)
[2019-04-21] MEDS: METOPROLOL SUCCINATE 50 MG TAB XL PO SCH (09:42)
--- NOTE | 2019-04-21 11:04 | NUR ---
Pt discharged home at this time. Pt discharged home with PICC line in place to left upper ext. Pt will continue IV antibiotic with Dr. Diaz. Pt denies any pain at this time. One prescription given at time of discharge.
--- NOTE | 2019-04-21 19:30 | Discharge Summary ---
ADMISSION DIAGNOSES: Right hand cellulitis, hypertension, hyperlipidemia, peripheral neuropathy, depression, gastroesophageal reflux disease, type 2 diabetes, ambulatory dysfunction, chronic pain, history of myocardial infarction. DISCHARGE DIAGNOSES: Right hand cellulitis, hypertension, hyperlipidemia, peripheral neuropathy, depression, gastroesophageal reflux disease, type 2 diabetes, ambulatory dysfunction, chronic pain, history of myocardial infarction. Rule out abscess. HISTORY: The patient has a history of hypertension, hyperlipidemia, type 2 diabetes, GERD, chronic back pain, peripheral neuropathy, depression, [place]. SURGICAL HISTORY: Thoracic back surgery and cholecystectomy. FAMILY HISTORY: The patient's dad has cancer. SOCIAL HISTORY: The patient admits to using vape for two years. HOSPITAL COURSE: A 68-year-old male complains of right hand swelling and erythema after obtaining a scratch from his kitchen cabinet on Wednesday. By Wednesday, he noticed the redness and swelling. He denies fever and drainage. On admission, the patient was started on vancomycin and Zosyn. X-ray of the hand was negative for osseous abnormality. Chest x-ray was negative. The patient had a left arm PICC due to long-term antibiotics. After couple of days of IV antibiotics, the wound got worse, so Infectious Disease was consulted. Blood culture is negative and urine culture negative. An MRI of the hand was ordered to rule out abscess. The MRI showed a 1.4 x 1.3 x 1.0 peripherally enhancing fluid collection in the superficial dorsal soft tissues at the level of the 3rd metacarpophalangeal joint. Similar-appearing, but larger peripherally enhancing fluid collection in the more deep dorsal soft tissues at the level of the mid 3rd and 4th metacarpals. Third metacarpophalangeal joint effusion and synovitis could be reactive or possibly early septic arthritis. The hand surgeon was consulted, who did a bedside aspiration. He got out 1 mL of bloody fluid. He approved the patient for discharge. Infectious Disease also approved the patient for discharge. He will follow up with three weeks of clindamycin in the office. Vital signs stable. The patient afebrile. The patient is feeling much better and is ready to discharge home. He will follow up with primary care in 1 to [address] Diaz as discussed. Dictated by Adriane Correa, DAVID MD DESTINEY Brar/LILIA /[id number]
== END 2019-04-21 11:04 | disposition home or self-care (01) | DRG 603 ==
LOC: ER 16:08 → ERHOLD 18:09 → MED/SURG2 19:39
PROVIDERS: ADMIT Internal Medicine; ATTEND Internal Medicine
PROC: 02HV33Z Insertion of Infusion Device into Superior Vena Cava, Percutaneous Approach (ICD-10-PCS; principal; 2019-04-18)
DX: L03.113 Cellulitis of right upper limb (principal); E11.42 Type 2 diabetes mellitus with diabetic polyneuropathy; Z79.4 Long term (current) use of insulin; K21.9 Gastro-esophageal reflux disease without esophagitis; R26.9 Unspecified abnormalities of gait and mobility; I25.2 Old myocardial infarction; G89.29 Other chronic pain; I10 Essential (primary) hypertension; F32.9 Major depressive disorder, single episode, unspecified; I25.10 Atherosclerotic heart disease of native coronary artery without angina pectoris
CPT/HCPCS: 36415; 36569; 71045; 80048; 80053; 80202; 81001; 82550; 82553; 82948; 83605; 83735; 84484; 85025; 85610; 85730; 87040; 87071; 87075; 87086; 87186; 87205; 93971; 99284; J0360; J0692; J2543; J3370; J7030; J7050

== ENCOUNTER → 2019-07-06 | Day surgery (SDC) | payer MEDICARE, OTHER ==
[2019-07-03 15:09] LABS: EOSINOPHILS # (AUTO) 0.1 (0.0-0.4); EOSINOPHILS % 3.5 % (0.0-6.0); HEMATOCRIT 33.2 % (38.2-49.6); LYMPHOCYTES # (AUTO) 0.9 (1.0-3.2); LYMPHOCYTES % 29.9 % (18.0-39.1); MEAN CORPUSCULAR HEMOGLOBIN 29.4 pg (28-32); MEAN CORPUSCULAR HGB CONC 33.1 g/dL (31-35); MEAN CORPUSCULAR VOLUME 88.8 fL (81-99); MONOCYTES # (AUTO) 0.3 (0.2-0.8); MONOCYTES % 8.7 % (4.4-11.3); NEUTROPHILS # (AUTO) 1.8 (2.1-6.9); NEUTROPHILS % 56.6 % (38.7-80.0); PLATELET COUNT 214 x10e3/uL (140-360); RED BLOOD COUNT 3.74 x10e6/uL (4.3-5.7)
[~2019-07-06] MED LIST changes: +AMLODIPINE BESY10 MG PO; +AMMONIUM LACTATE1 ML; +AMMONIUM LACTATE1 ML TOP; +ATORVASTATIN CA20 MG PO; +FENOFIBRIC ACI105 MG PO; +FENTANYL CITRATE/PF 100MCG/2 ML INJ ONE; +FERROUS SULFAT325 MG PO; +GLUCAGON FOR INJ 1 MG VIAL ONE; +HYOSCYAMINE 0.125 MG TAB ONE; +METOPROLOL SUC100 MG PO; +MIDAZOLAM HCL 2 MG/2 ML VIAL ONE; +MOBIC15 MG PO; +MULTI-VITAMIN1 EACH PO; +NIFEDIPINE ER30 M1 PO; +PROPOFOL IV EMULSION 10 MG/ML 50 ML VIAL ONE; +SIMETHICONE 40 MG/0.6 ML BTL ONE; +eliquis PO
[2019-07-06 10:30] VITALS: BP 123/67
[2019-07-06 11:10] LABS: % IRON SATURATION 20 % (15-50); IRON 105 ug/dL (65-175); TOTAL IRON BINDING CAPACITY 535 ug/dL (261-478); TRANSFERRIN 382 mg/dL (174-364)
--- NOTE | 2019-07-06 13:47 | Operative Report ---
DATE OF PROCEDURE: 07/06/2019 SURGEON: Ignacio Alarcon MD PROCEDURE: Colonoscopy with polypectomy. INDICATIONS FOR COLONOSCOPY: Surveillance colonoscopy, personal history of colon polyps. MEDICATIONS: The patient was done under MAC, please see anesthesiologist's note. PROCEDURE IN DETAIL: With the patient in left lateral decubitus position, a flexible fiberoptic Olympus colonoscope was inserted into the rectum with ease and advanced all the way to the cecum. Prep overall was poor with large amount of retained fecal material in the colon. The scope was then withdrawn slowly, whatever was visualized the mucosa overlying the cecum, ascending colon, transverse and descending grossly appeared to be within normal limits. Two minute polyps were removed per hot biopsy forceps from the sigmoid colon. The rectum grossly appeared to be within normal limits. The scope was then retroflexed into the distal rectum and moderate-sized internal hemorrhoids were noted, none of which was actively bleeding. The scope was then straightened out, it was subsequently withdrawn, and the patient tolerated the procedure well. IMPRESSION: 1. Poor prep. 2. Sigmoid colon polyps x2, hot biopsied. 3. Internal hemorrhoids, none actively bleeding. PLAN: Follow up histology. The patient will need a repeat colonoscopy after a better prep. Ignacio Alarcon MD [facility] [place]/LILIA /[id number] cc: Joni Marie MD
== END | disposition home or self-care (01) ==
LOC: OR 06:32
PROVIDERS: ATTEND Internal Medicine Gastroenterology
DX: Z09 Encounter for follow-up examination after completed treatment for conditions other than malignant neoplasm (principal); K63.5 Polyp of colon; K59.00 Constipation, unspecified; K64.8 Other hemorrhoids; K29.60 Other gastritis without bleeding; K22.711 Barrett's esophagus with high grade dysplasia; K20.8 Other esophagitis; E11.9 Type 2 diabetes mellitus without complications; G47.33 Obstructive sleep apnea (adult) (pediatric); I25.2 Old myocardial infarction; I25.10 Atherosclerotic heart disease of native coronary artery without angina pectoris; I10 Essential (primary) hypertension; E78.5 Hyperlipidemia, unspecified; M54.2 Cervicalgia; M54.9 Dorsalgia, unspecified; I34.1 Nonrheumatic mitral (valve) prolapse; F32.9 Major depressive disorder, single episode, unspecified; F17.290 Nicotine dependence, other tobacco product, uncomplicated; F41.9 Anxiety disorder, unspecified; Z01.810 Encounter for preprocedural cardiovascular examination; Z01.812 Encounter for preprocedural laboratory examination; Z79.02 Long term (current) use of antithrombotics/antiplatelets; Z79.82 Long term (current) use of aspirin; Z79.84 Long term (current) use of oral hypoglycemic drugs; Z68.26 Body mass index [BMI] 26.0-26.9, adult; Z87.01 Personal history of pneumonia (recurrent); Z80.0 Family history of malignant neoplasm of digestive organs
CPT/HCPCS: 36415 ×2; 45384; 82607; 82746; 82948; 83540; 84466; 85025; 85045; 88305; 93005; J1610; J2250; J2704; J3010; 45378